=== PATIENT | female | born 1950 | race Caucasian/White ===

== ENCOUNTER 2021-03-05 12:08 | Emergency (ER) | payer MEDICARE ==
[2021-03-05 18:30] LABS: SARS-CoV-2 PCR by NAA DETECTED (NotDetected)
== END 2021-03-05 13:41 | disposition home or self-care (01) ==
LOC: ERS 12:08
DX: U07.1 COVID-19 (principal); K21.9 Gastro-esophageal reflux disease without esophagitis; E78.5 Hyperlipidemia, unspecified; M19.90 Unspecified osteoarthritis, unspecified site; Z79.899 Other long term (current) drug therapy
CPT/HCPCS: 71045; U0003; U0005